=== PATIENT | male | born 1955 | race Caucasian/White ===

== ENCOUNTER 2019-10-31 10:10 | Inpatient (IN) ==
[2019-10-31] MEDS ORDERED: 0.9 % Sodium Chloride 1,000 ML IVC ONE ×3 (10:28→11:03)
[2019-10-31] MEDS ORDERED: Isovue-370 500 ML BOTTLE IVP ONE (10:29)
[2019-10-31] MEDS ORDERED: Isovue-370 500 ML BOTTLE PO ONE (10:40)
[2019-10-31 10:49] LABS: Basophils % 0.1 %; Eosinophils % 0.1 %; Hemoglobin 11.4 g/dL (12.9-16.9); Lymphocytes # 0.5 K/mcL (0.6-4.6); Lymphocytes % 2.9 %; Mean Corpuscular HGB Conc 30.8 g/dL (31.6-35.5); Mean Corpuscular Hemoglobin 29.2 pg (28.0-33.3); Mean Corpuscular Volume 94.9 fL (83.0-100.0); Mean Platelet Volume 10.9 fL (9.4-12.4); Monocytes % 4.8 %; Nucleated Red Blood Cells 0.6 /100 WBC (0); Platelet Count 634 K/mcL (140-400); Red Cell Distribution Width 16.7 % (11.5-14.5); Segmented Neutrophils % 91.1 %; White Blood Count 17.6 K/mcL (4.3-11.1)
[2019-10-31 10:50] LABS: Prothrombin Time 34.4 Seconds (9.4-12.1)
[2019-10-31 10:51] LABS: Monocytes # 0.8 K/mcL (0.0-1.3)
[2019-10-31 10:52] LABS: Activated Partial Thrombo Time 38.5 Seconds (26.0-36.0)
[2019-10-31 10:56] LABS: ABG Base Excess -10 mEq/L (-2 to 3); ABG HCO3 15 mEq/L (21-27); ABG Oxygen Saturation 92 % (95-98); ABG PCO2 29 mmHg (35-45); ABG PH 7.33 pH Units (7.32-7.45); ABG PO2 66 mmHg (85-104); ABG TCO2 16 mEq/L (20-26)
[2019-10-31 11:02] LABS: Albumin 3.1 g/dL (3.5-5.7); Albumin/Globulin Ratio 0.9 (1.1-2.2); Bilirubin,Direct 0.3 mg/dL (0.0-0.2); Bilirubin,Indirect 0.3 mg/dL (0.0-1.0); Bilirubin,Total 0.6 mg/dL (0.3-1.0); Calcium 13.8 mg/dL (8.6-10.3); Globulin 3.6 g/dL (2.4-3.5); Platelet Estimate Increased (Normal); Potassium 5.2 mEq/L (3.5-5.1); Total Protein 6.7 g/dL (6.4-8.9); Troponin I 0.13 ng/mL (< 0.04)
[2019-10-31] MEDS ORDERED: Piperacillin/Tazobactam 3.375 GM in D5% in Water (Mini-Bag+) 100 ML IVPB ONE (11:03)
[2019-10-31 11:04] LABS: Howell-Jolly Bodies 1+ (Not Present); Macrocytosis Present (Not Present); Polychromasia 1+ (Not Present)
[2019-10-31] MEDS ORDERED: Insulin Regular, Human 100 UNIT/ML SQ ONE (11:07)
[2019-10-31] MEDS ORDERED: *HR* FentaNYL (PF) 100 MCG/2 ML VIAL IVP ONE (12:15)
[2019-10-31] MEDS ORDERED: Ondansetron 4 MG/2 ML VIAL IVP PRN (13:04)
[2019-10-31] MEDS ORDERED: Morphine Sulfate 2 MG/ML SYRINGE IVP PRN (13:04)
[2019-10-31] MEDS ORDERED: Atropine Sulfate 1% 40 DROP/2 ML BOTTLE SL PRN (13:04)
[2019-10-31] MEDS ORDERED: *HR* LORazepam 2 MG/ML VIAL IVP PRN (13:04)
[2019-10-31] MEDS ORDERED: Bisacodyl 10 MG RECTAL SUPPOSITORY RC PRN (13:04)
[2019-10-31] MEDS ORDERED: *HR* Dextrose 50 % in Water (Syg) 50 ML SYRINGE IVP ONE (14:29)
[2019-10-31] MEDS ORDERED: Lactulose Oral Soln 20 GM/30 ML UDC PO SCH (21:00)
[2019-10-31 21:22] VITALS: BP 79/48
== END 2019-11-01 00:35 | disposition expired | DRG 951 ==
LOC: INPGRE 10:10 → EMEROOGRE 10:10 → OBSVTOIN 12:48 → INPGRE 13:45
PROVIDERS: ADMIT Family Medicine; ATTEND Family Medicine